=== PATIENT | male | born 1990 | race Two or more races ===

== ENCOUNTER 2017-11-29 17:14 | Emergency (ER) | payer SELFPAY ==
[~2017-11-29] VITALS: Ht 177.8 cm; Wt 102.1 kg
[2017-11-29 17:18] VITALS: BP 154/102
== END 2017-11-29 17:49 | disposition home or self-care (01) ==
LOC: ER 17:17
DX: F18.10 Inhalant abuse, uncomplicated (principal)
CPT/HCPCS: 99283; A4606; Z7610